=== PATIENT | female | born 1965 | race Caucasian/White ===

== ENCOUNTER 2023-04-20 16:56 | Outpatient (RCR) | payer OTHER, SELFPAY | END 2023-04-20 23:59 | disposition home or self-care (01) | LOC: RPT 16:56 | PROVIDERS: ATTENDING PHYSICIAN Orthopaedic Surgery Orthopaedic Surgery of the Spine; FAMILY PHYSICIAN Internal Medicine | DX: M54.16 Radiculopathy, lumbar region (principal); Z73.6 Limitation of activities due to disability; M48.062 Spinal stenosis, lumbar region with neurogenic claudication; M43.16 Spondylolisthesis, lumbar region; M62.81 Muscle weakness (generalized) | CPT/HCPCS: 97010; 97110; 97112; 97161; 97530 ==

== ENCOUNTER 2023-04-22 18:15 | Outpatient (RCR) | payer OTHER, SELFPAY | END 2023-04-23 07:33 | disposition home or self-care (01) | LOC: RPT 18:15 | PROVIDERS: ATTENDING PHYSICIAN Orthopaedic Surgery Orthopaedic Surgery of the Spine; FAMILY PHYSICIAN Internal Medicine | DX: M48.062 Spinal stenosis, lumbar region with neurogenic claudication (principal); M43.16 Spondylolisthesis, lumbar region; M54.16 Radiculopathy, lumbar region; Z73.6 Limitation of activities due to disability | CPT/HCPCS: 97010; 97110 ==

== ENCOUNTER → 2024-04-19 12:40 | Outpatient (REF) | payer OTHER, SELFPAY | LOC: WDC 12:40 | PROVIDERS: ATTENDING PHYSICIAN Internal Medicine | DX: Z12.31 Encounter for screening mammogram for malignant neoplasm of breast (principal) | CPT/HCPCS: 77063; 77067 ==